=== PATIENT | female | born 1935 | race Caucasian/White ===

== ENCOUNTER → 2016-11-01 | Outpatient (CLI) | payer MEDICARE | LOC: HEART 5 10-31 14:00 | DX: I25.10 Atherosclerotic heart disease of native coronary artery without angina pectoris (principal); I48.0 Paroxysmal atrial fibrillation; R06.02 Shortness of breath | CPT/HCPCS: 93306 ==

== ENCOUNTER 2021-11-04 11:10 | Emergency (ER) | payer MEDICARE, BC ==
[~2021-11-04 11:10] MED LIST: CYMBALTA60 MG PO; DITROPAN 5 MG TA5 MG PO; ELIQUIS2.5 MG PO; HYDROCHLOROTHIA25 MG PO; IMDUR ER TAB 3030 MG PO; K-DUR TAB 20 M20 MEQ PO; LASIX20 MG PO; LOPRESSOR 25 MG25 MG PO; NEURONTIN 100100 MG PO; NITROGLYCERIN0.4 MG SL; PRILOSEC OTC20 MG PO; REMERON15 MG PO; SINGULAIR10 MG PO; VITAMIN D35000 UNI1 PO; ZOCOR20 MG PO
[2021-11-04 13:08] LABS: HEMOGLOBIN 15.3 gm/dl (12.3-15.3); RED BLOOD COUNT 4.65 M/UL (4.00-5.10); WHITE BLOOD COUNT 9.7 K/UL (4.5-11.0)
[2021-11-04 13:28] LABS: BUN/CREATININE RATIO 16 (0-10)
== END 2021-11-04 15:40 | disposition home or self-care (01) ==
LOC: ER1 11:10 → CDU 14:47 → ER1 14:47 → CDU 15:50
PROVIDERS: Physician Assistant
DX: S72.012A Unspecified intracapsular fracture of left femur, initial encounter for closed fracture (principal); E87.6 Hypokalemia; Z20.822 Contact with and (suspected) exposure to COVID-19; I25.10 Atherosclerotic heart disease of native coronary artery without angina pectoris; I48.91 Unspecified atrial fibrillation; Z79.01 Long term (current) use of anticoagulants; Z90.49 Acquired absence of other specified parts of digestive tract; Z90.710 Acquired absence of both cervix and uterus; Z88.0 Allergy status to penicillin; Z95.1 Presence of aortocoronary bypass graft; Z88.2 Allergy status to sulfonamides; Z91.041 Radiographic dye allergy status; W19.XXXA Unspecified fall, initial encounter; Y92.009 Unspecified place in unspecified non-institutional (private) residence as the place of occurrence of the external cause
CPT/HCPCS: 70450; 71045; 72125; 72170; 72192; 73552; 80053; 82550; 82553; 84484; 85025; 93005; 99284; U0002